=== PATIENT | female | born 1985 | race Caucasian/White ===

== ENCOUNTER 2018-09-29 10:04 | Emergency (ER) | payer MEDICAID ==
[~2018-09-29] VITALS: Ht 167.6 cm; Wt 61.0 kg
[~2018-09-29 10:04] MED LIST: ATI1T PO; FAMO10TA89 PO; LOPE-74 PO; NO HOME MEDS; PHEN-786 PO; PROC10TA10 PO
[2018-09-29] MEDS ORDERED: LORazepam 1 MG tablet PO ONE (10:40)
[2018-09-29 11:07] LABS: URINE HCG NEGATIVE (NEG)
[2018-09-29 11:09] LABS: CLARITY,URINE CLEAR (Clear); COLOR,URINE YELLOW (Yellow); GLUCOSE, URINE NEGATIVE (Neg); KETONES,URINE TRACE mg/dl (Neg); LEUKOCYTE ESTERASE ,URINE NEGATIVE (Neg); NITRITES, URINE NEGATIVE (Neg); OCCULT BLOOD,URINE NEGATIVE (Neg); PROTEIN,URINE NEGATIVE (Neg); UROBILINOGEN,URINE 0.2 E.U/dL (0.2-1.0)
[2018-09-29 11:10] LABS: UA COLLECTION TYPE CLN CATCH MIDSTREAM
[2018-09-29 11:18] LABS: URINE AMPHETAMINE SCREEN POSITIVE (Neg); URINE BARBITUATE SCREEN NEGATIVE (Neg); URINE BENZODIAZEPINES SCREEN NEGATIVE (Neg); URINE CANNABINOID SCREEN NEGATIVE (Neg); URINE COCAINE SCREEN NEGATIVE (Neg); URINE METHADONE SCREEN NEGATIVE (Neg); URINE OPIATE SCREEN NEGATIVE (Neg); URINE PHENCYCLIDINE SCREEN NEGATIVE (Neg)
[2018-09-29 11:45] LABS: BASOPHILS % (AUTO) 0.5 % (0-1); EOSINOPHILS # (AUTO) 0.1 X10'3 (0-0.9); EOSINOPHILS % (AUTO) 1.2 % (0-6); HEMATOCRIT 41.4 % (35.0-45.0); HEMOGLOBIN 13.7 g/dl (12.0-16.0); LYMPHOCYTES # (AUTO) 1.7 X10'3 (1.1-4.8); LYMPHOCYTES % (AUTO) 24.3 % (21-51); MEAN CORPUSCULAR HEMOGLOBIN 28.8 PG (27.0-31.0); MEAN CORPUSCULAR VOLUME 87.1 FL (78-98); MEAN PLATELET VOLUME 7.9 FL (7.4-10.4); MONOCYTES # (AUTO) 0.5 X10'3 (0-0.9); MONOCYTES % (AUTO) 6.9 % (2-12); NEUTROPHILS # (AUTO) 4.8 X10'3 (1.8-7.7); NEUTROPHILS % (AUTO) 67.1 % (42-75); PLATELET COUNT 293 X10'3 (140-440); RED BLOOD COUNT 4.75 X10'6 (4.20-5.60); RED CELL DISTRIBUTION WIDTH 12.5 % (11.5-14.5); WHITE BLOOD COUNT 7.1 X10'3 (4.5-11.0)
[2018-09-29 12:00] LABS: ALANINE AMINOTRANSFERASE 20 U/L (12-78); ALBUMIN/GLOBULIN RATIO 1.1 (1.1-1.5); ALKALINE PHOSPHATASE 51 IU/L (46-116); ANION GAP 8 (8-16); ASPARTATE AMINO TRANSFERASE 16 U/L (10-37); BLOOD UREA NITROGEN 13 MG/DL (7-18); BUN/CREATININE RATIO 18.6 (6.6-38.0); CALCIUM 9.4 MG/DL (8.5-10.1); CHLORIDE 101 MMOL/L (99-107); GLUCOSE 101 MG/DL (70-104); POTASSIUM 3.6 MMOL/L (3.5-5.1); SODIUM 137 MMOL/L (135-145); TOTAL CARBON DIOXIDE 28.4 MMOL/L (24-32); TOTAL PROTEIN 7.5 G/DL (6.4-8.2); eGFR > 90 ML/MIN
[2018-09-29 12:10] LABS: ETHANOL < 0.010 GM/DL (0.0-0.010)
[2018-09-29] MEDS ORDERED: LORazepam 2 mg/ml vial IM ONE (13:35)
[2018-09-29] MEDS ORDERED: haloperidol lactate 5mg/ml inj IM ONE (13:35)
[2018-09-29 21:24] VITALS: BP 113/62
== END 2018-09-29 21:20 ==
LOC: EDSEX → ER 10:05
DX: F15.959 Other stimulant use, unspecified with stimulant-induced psychotic disorder, unspecified (principal); R00.0 Tachycardia, unspecified; F31.9 Bipolar disorder, unspecified; F20.9 Schizophrenia, unspecified; F41.9 Anxiety disorder, unspecified; R45.1 Restlessness and agitation; Z56.0 Unemployment, unspecified; Z59.0 Homelessness; Z88.0 Allergy status to penicillin; Z79.899 Other long term (current) drug therapy
CPT/HCPCS: 36415; 80053; 80305; 80320; 81003; 81025; 84443; 85025; 99285

== ENCOUNTER 2018-09-29 17:40 | Inpatient (IN) | payer MEDICAID ==
[~2018-09-29] VITALS: Ht 167.6 cm; Wt 65.0 kg
[2018-09-29 22:19] VITALS: BP 92/56
[2018-09-30 07:44] VITALS: BP 110/70
[2018-09-30] MEDS ORDERED: LORazepam 2 mg/ml vial ONE (16:23)
[2018-09-30] MEDS ORDERED: diphenhydrAMINE 50 mg/ml inj ONE (16:24)
[2018-09-30] MEDS ORDERED: haloperidol lactate 5mg/ml inj IM ONE ×2 (16:24→16:25)
[2018-09-30] MEDS ORDERED: diphenhydrAMINE 50 mg/ml inj IM ONE (16:25)
[2018-09-30] MEDS ORDERED: LORazepam 2 mg/ml vial IM ONE (16:25)
[2018-09-30 16:30] VITALS: BP 105/72
[2018-09-30] MEDS ORDERED: LORazepam 1 MG tablet PO PRN (19:20)
[2018-09-30] MEDS ORDERED: nicotine 21mg patch - 24 hr TD ONE (19:20)
[2018-09-30] MEDS ORDERED: cloNIDine 0.1 mg tablet PO PRN (19:20)
[2018-09-30] MEDS ORDERED: haloperidol 5mg tablet PO PRN (19:20)
[2018-09-30] MEDS ORDERED: diphenhydrAMINE 25mg capsule PO PRN (19:20)
[2018-09-30] MEDS ORDERED: mag hydrox/Alum hydrox/simeth 30ml oral suspension PO PRN (19:30)
[2018-09-30] MEDS ORDERED: magnesium hydroxide 30ml (MOM) UD suspension PO PRN (19:30)
[2018-09-30] MEDS ORDERED: acetaminophen 325mg tablet PO PRN (19:30)
[2018-09-30 20:00] VITALS: BP 106/72
[2018-09-30 23:22] VITALS: BP 106/72
[2018-10-01 08:00] VITALS: BP 117/77
[2018-10-01] MEDS ORDERED: cloNIDine 0.1 mg tablet PO PRN (18:40)
[2018-10-01 19:00] VITALS: BP 128/79
[2018-10-01] MEDS: risperiDONE 0.5mg tablet PO SCH (21:20)
[2018-10-02 08:00] VITALS: BP 103/70
[2018-10-02] MEDS: risperiDONE 0.5mg tablet PO SCH (08:24)
[2018-10-02] MEDS: CITALOpram 10mg tablet PO SCH (08:24)
[2018-10-02] MEDS: nicotine 21mg patch - 24 hr TD SCH (08:25)
[2018-10-02 20:00] VITALS: BP 134/78
[2018-10-02] MEDS ORDERED: risperiDONE 0.5mg tablet PO PRN (20:00)
[2018-10-03 08:00] VITALS: BP 123/87
[2018-10-03] MEDS: CITALOpram 10mg tablet PO SCH (08:27)
[2018-10-03] MEDS: nicotine 21mg patch - 24 hr TD SCH (08:28)
== END 2018-10-03 16:30 | disposition left against medical advice (07) | DRG 776 ==
LOC: ED HOLD 17:40 → UNDOADMIN 17:40 → ADULT MH 17:40
PROVIDERS: ADMIT Psychiatry & Neurology Psychiatry; ATTEND Psychiatry & Neurology Psychiatry
DX: F15.259 Other stimulant dependence with stimulant-induced psychotic disorder, unspecified (principal); F20.9 Schizophrenia, unspecified; F17.210 Nicotine dependence, cigarettes, uncomplicated; F31.9 Bipolar disorder, unspecified; E05.00 Thyrotoxicosis with diffuse goiter without thyrotoxic crisis or storm; Z53.21 Procedure and treatment not carried out due to patient leaving prior to being seen by health care provider; T43.595A Adverse effect of other antipsychotics and neuroleptics, initial encounter; F41.9 Anxiety disorder, unspecified; G24.9 Dystonia, unspecified; Z88.0 Allergy status to penicillin; Z79.899 Other long term (current) drug therapy; Z59.0 Homelessness; Y92.89 Other specified places as the place of occurrence of the external cause
CPT/HCPCS: 87070; J1200; J1630; J2060; Q0163

== ENCOUNTER 2019-01-11 18:17 | Emergency (ER) | payer MEDICAID ==
[~2019-01-11] VITALS: Ht 167.6 cm; Wt 68.1 kg
[2019-01-11] MEDS ORDERED: CEPH500C5 PO (19:56)
[2019-01-11 20:07] VITALS: BP 139/68
== END 2019-01-11 20:12 | disposition home or self-care (01) ==
LOC: ER 18:17
DX: S30.860A Insect bite (nonvenomous) of lower back and pelvis, initial encounter (principal); L03.317 Cellulitis of buttock; F11.90 Opioid use, unspecified, uncomplicated; Z59.0 Homelessness; Z56.0 Unemployment, unspecified; W57.XXXA Bitten or stung by nonvenomous insect and other nonvenomous arthropods, initial encounter; Y93.89 Activity, other specified; Y92.89 Other specified places as the place of occurrence of the external cause; Y99.8 Other external cause status
CPT/HCPCS: 99283